=== PATIENT | female | born 1990 | race Hispanic/Latino ===

== ENCOUNTER 2016-07-19 05:33 | Inpatient (IN) | payer OTHER ==
[~2016-07-19] VITALS: Ht 154.9 cm; Wt 86.2 kg
--- NOTE | 2016-07-19 07:18 | PCM.HPANE ---
Patient Data Surgeon Admitting Provider:Dileep Milner MD Attending Provider:Dileep Milner MD Primary Care Physician:Cezar Cabrera MD Other Provider:Hanna Velásquez Anesthesia Reason for Visit repeat section repeat section Ht/WT & BMI Body Mass Index Allergies Coded Allergies: No Known Allergies (Verified , 08/11/05) Past Anesthesia History Anesthesia History: Denies:: Abnormal Airway, Anesthesia Reactions, Difficult Intubation, Fam Anesthesia Reaction, Fam Malignant Hypertherm, Malignant Hyperthermia Diabetes History Hx Diabetes?: No MRSA MRSA: No History History of ENT Problems?: No HEENT History: Denies:: Abnormal Airway Cataracts Difficult Intubation Dysphagia Glaucoma Hearing Problem Sinus Problem TMJ Denture Type: None Teeth Condition: Within Normal Limits Hx of Heart Problems?: No Cardiovascular History: Denies:: AICD Abdominal Aortic Aneurism Atrial Fibrillation Cardiac Surgery Chest Pain Congestive Heart Failure Coronary Artery Disease Edema Heart Murmur Hypertension Irregular Heartbeat Pacemaker Peripheral Vascular Rheumatic Fever Thrombophlebitis Valvular Heart Disease Hx of Respiratory Problem?: No Respiratory History: Denies:: Asthma COPD Chest Surgery Cough Dyspnea Emphysema Hemoptysis Oxygen Administration Pneumonia Pulmonary Embolism Tuberculosis Use of C-PAP Machine Use of Inhalers / NEBS Hx Neurologic Problems?: No Neurological History: Denies:: Alzheimer's Disease CVA Dementia Dizziness Headaches Multiple Sclerosis Parkinson's Disease Peripheral Neuropathy Seizures TIA Hx of GI Problems?: No Gastrointestinal History: Denies:: Cirrhosis Diverticulitis Gall Bladder Disease Gastroesphageal Reflux Gastrointestinal Bleeding Heartburn Hepatitis Hiatal Hernia Liver Disease Rectal Bleeding Hx of Problems?: No Genitourinary History: Denies:: HX of Hemodialysis Kidney Stones Urinary Tract Infection HX of Peritoneal Dialysis: No Female Hx: Denies:: Currently Endometriosis Pelvic Inflammatory Problems with Breasts? Skin History: Denies:: History Skin Disorders? Pressure Ulcers Hx Musculoskeletal Problems?: No Musculoskeletal History: Denies:: Back Injury Degenerative Joint Fibromyalgia Joint Replacement Musculoskeletal Trauma Myasthenia Gravis Osteoarthritis Rheumatoid Arthritis Systemic Lupus Hx of Psycho/Social Problems?: No Psycho Social History: Denies:: Anxiety Bipolar Disorder Hx Depression Suicide Attempt Hx Surgeries?: Yes Other History: Denies:: Cancer Endocrine Disease Hospitalization Thyroid Disease History Blood Transfusions: Denies:: Accept Blood Products? Blood Transfuse Reaction Blood Transfusions Hx Substance Use: No Smoking Status: Never Smoker Stop/Bang CHRIS Risk Assessment: Low Risk, <3 Yes Risk Assessment Category Category 1A: Patient has history of documented sleep apnea, and HAS NOT received any narcotic, sedative or anesthesia administration during this stay. Category 1B: Patient has history of documented sleep apnea, and HAS received any narcotic , sedative or anesthesia administration during this stay Category 2: Patient has SUSPECTED Obstructive Sleep Apnea, and HAS received any narcotic , sedative or anesthesia administration during this stay. Category 3: Patient has SUSPECTED Obstructive Sleep Apnea and HAS NOT received narcotic, sedative or anesthesia administration during this stay. Category 4: Outpatient in Procedural Areas with known sleep apnea or who screen positive for High Risk via the STOP/BANG questionnaire. Exam Exam General Appearance: Alert HEENT/AIRWAY: MP 1 Lungs: Clear to Auscultation Heart: Exam Unremarkable Plan Impression Patient chart reviewed, patient interviewed and anesthestic plan with risks, benefits, and alternatives discussed, and informed consent obtained. NPO per Anesth. Guidelines: Yes ASA Physical Status: ASA1 Normal Healthy Anesthetic Plan: SAB Bene/Risks/Altern/Consents: Yes HP Complete Prior to Induction: Yes Phillip Osborne MD July 19, 2016 07:18
[2016-07-19 07:24] LABS: Mean Corpuscular Hemoglobin 31.4 pg (27.0-35.0); Mean Corpuscular Volume 91.1 fL (81-100)
[2016-07-19] MEDS ORDERED: MetoCLOpramide 5 mg/mL 2 mL Inj IVPUSH PRN (07:35)
[2016-07-19] MEDS ORDERED: Dexamethasone 4 mg/mL Inj IVPUSH PRN (07:35)
[2016-07-19] MEDS ORDERED: Hemorrhage Kit, Post Partum XX PRN (07:35)
[2016-07-19] MEDS ORDERED: Ondansetron 2 mg/mL 2 mL Inj IVPUSH PRN (07:35)
[2016-07-19] MEDS ORDERED: CeFAZolin Inj 2 GM in IV Premix 1 EACH IV SCH (07:35)
[2016-07-19] MEDS ORDERED: Atropine 0.4 mg/mL Inj IV PRN (07:35)
[2016-07-19] MEDS ORDERED: fentaNYL-PF 50 mCg/mL 2 mL Inj IVPUSH PRN (07:35)
[2016-07-19] MEDS ORDERED: EPHEDrine Sulfate 50 mg/mL Inj IVPUSH PRN (07:35)
[2016-07-19] MEDS ORDERED: Sodium Citrate-Citric Acid 15 mL Solution ONE (07:39)
[2016-07-19] MEDS ORDERED: Lactated Ringer's 1,000 ML IV SCH (09:27)
[2016-07-19] MEDS ORDERED: diphenhydrAMINE 50 mg Capsule PO PRN (09:30)
[2016-07-19] MEDS ORDERED: HYDROcodone-APAP 5-325 mg Tablet PO PRN (09:30)
[2016-07-19] MEDS ORDERED: Oxytocin 10 Unit/mL Inj IM PRN (09:30)
[2016-07-19] MEDS ORDERED: Methylergonovine 0.2 mg/mL Inj IM PRN (09:30)
[2016-07-19] MEDS ORDERED: LANOlin HPA 7 Gm Ointment TOPICAL PRN (09:30)
[2016-07-19] MEDS ORDERED: Oxytocin 30 Units/500 mL LR 30 UNITS in IV Premix 1 EACH IV PRN (09:30)
[2016-07-19] MEDS ORDERED: hydrOXYzine Pamoate 25 mg Capsule PO PRN (09:30)
[2016-07-19] MEDS ORDERED: Sodium Chloride LOK Flush 10 mL Syringe IVFLUSH PRN (09:30)
[2016-07-19] MEDS ORDERED: Acetaminophen IV 1,000 MG in IV Premix 1 EACH IV PRN (09:30)
[2016-07-19] MEDS ORDERED: Hemorrhage Kit, Post Partum XX ONE (09:30)
[2016-07-19] MEDS ORDERED: Carboprost 250 mCg/mL Inj IM PRN (09:30)
[2016-07-19] MEDS ORDERED: Oxytocin 30 Units/500 mL LR Premix IV ONE (09:35)
--- NOTE | 2016-07-19 10:04 | OP ---
[address] [address] OPERATIVE REPORT PATIENT: ANOOP DELANEY : 1990 MR#: [id number] ADMIT: 07/19/2016 JOB ID: [id number] DATE OF SURGERY: 07/19/2016 PREOPERATIVE DIAGNOSIS(ES): 1. 4 para 2 female at 39 weeks estimated gestational age. 2. Previous section x2. POSTOPERATIVE DIAGNOSIS(ES): 1. 4 para 3 female now delivered by repeat section. 2. Nuchal cord x 1 in ...reduced. SURGERY PERFORMED: Repeat low transverse section via Pfannenstiel incision. SURGEON: Dileep Milner MD URBAN AND REGIONAL PLANNER: Cezar Cabrera MD ANESTHESIA: Spinal. INDICATION: Prior section x2. COMPLICATIONS: None. FINDINGS: 1. Midline muscular defect from prior C-sections that was repaired in this . 2. Mild to moderate scar tissue. 3. Vigorous 9 pound 2 ounce, male, with Apgars of 9 and 9. 4. Normal uterus, tubes, and ovaries. ESTIMATED BLOOD LOSS: 600 cc. INTRAVENOUS FLUIDS: 1700 cc of lactated Ringer's. URINE OUT: 300 cc of clear urine at the end of the procedure. PATHOLOGY: None. DESCRIPTION OF PROCEDURE: The patient was taken back to the OR where spinal anesthesia was performed. She was prepped and draped in the usual fashion. A procedural time-out was done. Ancef 2 g IV were given prior to the incision. Once anesthesia was found to be adequate, the prior incision site was used as a starting point for this surgery. The 15 blade was used to incise down to the fascia. The fascia was incised in the midline and this incision was carried laterally in each direction using the Martino scissors. The fascia was then elevated superiorly and inferiorly using Bert clamps, and the underlying muscle was dissected off, being careful to avoid the defective area in the muscle and any bowel that might be poking through. Once the muscle was dissected off the overlying fascia, the midline defect was explored for bowel or bladder, and none was immediately seen underneath the muscle. I carefully dissected the peritoneal and the muscular layer down towards the bladder and superiorly. I laterally extended the incision through the peritoneal layer, being careful to avoid the underlying bowel or bladder. This was then used the Metzenbaum scissors. Finally, we stretched the double layers to make additional room for the surgery. Once this had been done, the bladder blade was inserted and a bladder flap was created on the uterus itself. The bladder reflection was noted on the uterus and this was carefully avoided. The bladder blade was reinserted and the uterine incision was made using the knife. The final entry into the uterus, however, was done with the back of the knife, being careful to avoid the underlying baby. The amniotic fluid was noted to be clear. The uterine incision was then extended using the bandage scissors while protecting the underlying baby. The vertex was then delivered with a nuchal cord noted and reduced. The shoulders followed easily and 30 seconds of delayed cord clamping was performed. The cord was then clamped and cut, and the infant was handed off to the waiting respiratory therapist. The placenta was manually extracted. Next, the uterus was exteriorized and cleared of all membranes. The uterine incision was closed using 1-0 chromic in a running locked fashion. Of note is that there was a left inferior extension of the incision that was closed using a 2nd 1-0 chromic suture. The patient had very little bleeding after the uterine incision was closed, and a second layer was not performed. The Bovie was used to stop any bleeders. Next, the pelvis and abdomen were irrigated. The uterus was then replaced back into the pelvis and additional bleeders were addressed with the Bovie. Once this had been done, Interceed was placed over the top of the uterine incision to avoid future scarring. The patient's muscle was then closed superiorly using 2-0 chromic suture, being careful to avoid the underlying bowel. Due to the prior defect, the closure of this required a second suture. A 1-0 chromic suture was used to draw together the inferior aspect of this muscle, and care was made to avoid the underlying bladder in this case. The entire muscle layer was able to be closed, and hopefully this was going to prevent future fat adhesions to the fascia layer. Next, any additional bleeders were stopped using the Bovie on the muscle. The fascia was then closed using 0 Vicryl in a running fashion. The subcuticular area was undermined and bleeders were stopped using the Bovie. The subcutaneous tissue was irrigated. The skin incision was closed using jonathan. Counts were correct x3. There were no other complications. The patient was in excellent condition following the surgery. ЕЛЕНА
[2016-07-19] MEDS ORDERED: Oxytocin 10 Unit/mL Inj ONE (10:20)
[2016-07-19] MEDS ORDERED: Phenylephrine/NS-PF 100 mCg/mL 5 mL Syringe IVPUSH ONE (10:20)
[2016-07-19] MEDS ORDERED: Morphine PF 1 mg/mL 10 mL Inj ONE (10:20)
[2016-07-19] MEDS ORDERED: fentaNYL-PF 50 mCg/mL 2 mL Inj ONE (10:20)
--- NOTE | 2016-07-19 15:33 | PCM.ANEP1 ---
Post Anesthesia PACU Phase 1 Assessment Vital Signs VSS Anesthetic Administered: Epidural Level of Alertness: Awake, talking CERVANTES's with Equal Strength: Yes Pain: No Nausea or Vomiting: No CV Function & Hydration Stable: Yes Airway Device: Oxygen Delivery: Room Air Lungs: Clear to Auscultation PACU Phase 2 Assessment Complications: No Follow up Care: No Patient Instructions Provided: Yes Phillip Osborne MD July 19, 2016 15:33
[2016-07-19] MEDS ORDERED: Measles-Mumps-Rubella Vaccine 0.5 mL Inj SUBQ ONE (21:05)
[2016-07-20] MEDS: oxyCODONE-Acetamin 5-325 mg Tablet PO PRN ×5 (03:46→22:40)
[2016-07-20] MEDS ORDERED: Sodium Citrate-Citric Acid 15 mL Solution PO ONE (06:00)
[2016-07-20 07:25] LABS: Mean Corpuscular Hemoglobin 31.6 pg (27.0-35.0); Mean Corpuscular Volume 90.9 fL (81-100)
--- NOTE | 2016-07-20 09:34 | PCM.PNOBPP ---
Subjective Date of Service July 20, 2016 Post : Repeat Ceserean Delivery Lochia: Normal Pain Management: PO pain meds Gastrointestinal: Good Appetite, No N/V Postop Activity: Ambulating Independently Labs Laboratory Tests 07/20/16 07:12: White Blood Count 11.6, Red Blood Count 3.61, Hemoglobin 11.4, Hematocrit 32.8, Mean Corpuscular Volume 90.9, Mean Corpuscular Hemoglobin 31.6, Mean Corpuscular Hemoglobin Concent 34.8, Red Cell Distribution Width 14.3, Platelet Count 145 Exam Vital Signs Vital Signs: VS reviewed, stable Exam Abdomen: Fundus firm Extremities: No cords General: Alert, Oriented X3 Surgical Wound : Incision General Appearence: Zachery, Well Approximated, No Erythemia, No Discharge Dressing & Drainage Status: Dressing Removed OB Post Assessment/Plan Problems: (1) Status post repeat low transverse section Status: Acute ICD Code: Z98.891 Pain Evaluation: Adequate Pain Control Post plan: Continue routine post care, Discharge home tomorrow Dileep Milner MD July 20, 2016 09:34
[2016-07-21] MEDS: oxyCODONE-Acetamin 5-325 mg Tablet PO PRN ×2 (03:01→07:40)
--- NOTE | 2016-07-21 08:08 | PCM.DC.OB ---
Obstetrical Discharge Summary Date of Service July 21, 2016 Date of hospital admission July 19, 2016 at 05:33 Date of Discharge: July 21, 2016 Providers Admitting Physician: Dileep Milner MD Primary Care Physician: Cezar Cabrera MD Attending Physician: Dielep Milner MD Problems: (1) Status post repeat low transverse section Status: Acute ICD Code: Z98.891 Consultations Dileep Milner MD for LTCS Invasive procedures Repeat LTCS Date of Procedure: July 19, 2016 Hospital Course: Patient presented for repeat LTCS and this went well. Recovered well. Follow-up plan See Dr. Cabrera at each [facility] with her baby and at 8 weeks post . Discharge Diet: No restrictions Discharge Activity-General: Pelvic Rest for 6 weeks, Be up and about, Balance rest and activity, Activity as pain allows, Activity as energy allows, No lifting >15 pounds for 2 weeks copies to: Cezar Cabrera MD, David B MD July 21, 2016 08:08
--- NOTE | 2016-07-21 08:09 | PCM.DIOB ---
Obstetrical Disch Instruction Date of Service: July 21, 2016 Dates of Hospitalization Date of Hospital Admission July 19, 2016 at 05:33 Providers Admitting Physician: Dileep Milner MD Primary Care Physician: Cezar Cabrera MD Attending Physician: Dileep Milner MD Discharge Diagnosis Problems: (1) Status post repeat low transverse section Status: Acute ICD Code: Z98.891 Diet Discharge Diet: No restrictions Activity Discharge Activity-General: Pelvic Rest for 6 weeks, Be up and about, Balance rest and activity, Activity as pain allows, Activity as energy allows, No lifting >15 pounds for 2 weeks Dressing and Incisional Care Dressing Care: Allow Steri Stripes to fall off Hygiene: May shower, DO NOT soak incision under water, NO bathtub, hot tub or whirlpool Follow Up Plan Follow-up Provider (F9): Cezar Cabrera MD Follow-up appointment: Weeks (8) Call your provider for: Fever or Chills, Heavy vaginal bleeding, Heavy bleeding , Excessive constipation, Red painful breasts Dileep Milner MD July 21, 2016 08:09
[2016-07-21] MEDS ORDERED: IBUP800T28 PO (08:10)
[2016-07-21] MEDS ORDERED: OXYC1TAB24 PO (08:10)
[2016-07-21] MEDS ORDERED: DOCU-41 PO (08:10)
[2016-07-21 10:54] VITALS: BP 123/72; PULSE 93; RESP 16
== END 2016-07-21 11:41 | disposition home or self-care (01) | DRG 766 ==
LOC: FBC 05:33 → EDSTATUS 07:15
PROVIDERS: ADMIT Family Medicine; ATTEND Family Medicine
PROC: 10D00Z1 Extraction of Products of Conception, Low, Open Approach (ICD-10-PCS; principal; 2016-07-19 07:15)
DX: O69.81X0 Labor and delivery complicated by cord around neck, without compression, not applicable or unspecified (principal); O34.211 Maternal care for low transverse scar from previous cesarean delivery; Z3A.39 39 weeks gestation of pregnancy; Z37.0 Single live birth